=== PATIENT | male | born 1960 | race Caucasian/White ===

== ENCOUNTER 2017-02-06 12:57 | Emergency (ER) | payer SELFPAY ==
[2017-02-06 13:05] VITALS: BP 134/73; PULSE 83; RESP 16; TEMP 96.5; O2SAT 96
--- NOTE | 2017-02-06 13:47 | ED PDOC ---
HPI: Psych/Substance Abuse Time Seen by Provider: 02/06/17 13:10 Chief Complaint (Nursing): Alcohol Ingestion Chief Complaint (Provider): Alcohol Intoxication ED Caveat: Intoxicated History Per: Patient History/Exam Limitations: intoxication Onset/Duration Of Symptoms: Mins (just prior to arival) Current Symptoms Are (Timing): Still Present Additional Complaint(s): 54 y/o male, brought in by EMS, presents to the ED with a chief complaint of alcohol intoxication, with an onset just prior to arrival. Patient found in the park with bottle of vodka. As per EMS, patient was laying on park bench when found by Heriberto HERNANDEZ.Reviews of Systems and any pertinent history is limited secondary to the patient's inability to answer any of the provider's questions. Patient offers no complaints. Past Medical History Reviewed: Historical Data, Nursing Documentation, Vital Signs Vital Signs: Last Vital Signs Temp 96.5 F L 02/06/17 13:02 Pulse 83 02/06/17 13:02 Resp 16 02/06/17 13:02 BP 134/73 02/06/17 13:02 Pulse Ox 96 02/06/17 13:02 - Medical History PMH: No Chronic Diseases - Surgical History Surgical History: No Surg Hx - Family History Family History: States: Unknown Family Hx - Allergies Allergies/Adverse Reactions: Allergies Allergy/AdvReac Type Severity Reaction Status Date / Time No Known Allergies Allergy Verified 02/06/17 13:02 Review of Systems ROS Statement: Except As Marked, All Systems Reviewed And Found Negative Review Of Systems: ROS cannot be obtained secondary to pt's inabilty to answer questions. (patient is intoxicated with slurred speech) Neurological: Positive for: Change in Speech (Slurred Speech) Physical Exam - Reviewed Nursing Documentation Reviewed: Yes Vital Signs Reviewed: Yes - Physical Exam Appears: Positive for: Non-toxic, No Acute Distress Head Exam: Positive for: ATRAUMATIC, NORMOCEPHALIC Skin: Positive for: Normal Color, Warm Eye Exam: Positive for: Normal appearance, EOMI, PERRL ENT: Positive for: Normal ENT Inspection Neck: Positive for: Normal, Painless ROM, Supple Cardiovascular/Chest: Positive for: Regular Rate, Rhythm. Negative for: Murmur Respiratory: Positive for: Normal Breath Sounds. Negative for: Respiratory Distress Gastrointestinal/Abdominal: Positive for: Normal Exam, Soft. Negative for: Tenderness Back: Positive for: Normal Inspection Extremity: Positive for: Normal ROM. Negative for: Pedal Edema, Deformity Neurologic/Psych: Positive for: Other (Lethargic, but patient is responsive to verbal stimuli) - ECG O2 Sat by Pulse Oximetry: 96 (RA) Pulse Ox Interpretation: Normal - Progress ED Course And Treament: Patient alert with steady speech and gait. Eating sandwich in ED. Medical Decision Making Medical Decision Making: Time: --13:40 Impression: --ETOH Intoxication Plan: --Accucheck --Monitor patient until clinically sober and responsive Reassess -- Scribe Attestation: Documented by Rafita Harrison acting as a scribe for JOSE Mejia. Provider Attestation: All medical record entries made by the Scribe were at my direction and personally dictated by me. I have reviewed the chart and agree that the record accurately reflects my personal performance of the history, physical exam, medical decision making, and the department course for this patient. I have also personally directed, reviewed, and agree with the discharge instructions and disposition. Disposition - Clinical Impression Clinical Impression: Alcohol ingestion - Patient ED Disposition Is Patient to be Admitted: No - Disposition Referrals: [facility] [Outside] Disposition: Routine/Home Disposition Time: 17:43 Condition: FAIR Instructions: Alcohol Intoxication (ED) Forms: [employer] (Indonesian)
== END 2017-02-06 20:30 | disposition home or self-care (01) ==
LOC: H.ER 12:57 → EDBD 12:57 → H.ER 20:30
DX: F10.129 Alcohol abuse with intoxication, unspecified (principal)

== ENCOUNTER 2017-02-17 13:08 | Emergency (ER) | payer SELFPAY ==
[2017-02-17 13:22] VITALS: BP 156/96; PULSE 63; RESP 16; TEMP 97; O2SAT 98
--- NOTE | 2017-02-17 13:30 | ED PDOC ---
Lower Extremity Pain/Injury Time Seen by Provider: 02/17/17 13:23 Chief Complaint (Nursing): Lower Extremity Problem/Injury Chief Complaint (Provider): etoh History Per: Patient Additional Complaint(s): 56 year old non-domiciled male presents to ED with chronic pain to both feet ongoing for several years. Patient also states he had several drinks today and he states he drinks almost every day. Patient offers no other complaints. Past Medical History Reviewed: Historical Data, Nursing Documentation, Vital Signs Vital Signs: Last Vital Signs Temp 97.0 F L 02/17/17 13:17 Pulse 63 02/17/17 13:17 Resp 16 02/17/17 13:17 BP 156/96 H 02/17/17 13:17 Pulse Ox 98 02/17/17 13:17 - Medical History PMH: No Chronic Diseases - Family History Family History: States: No Known Family Hx - Living Arrangements Living Arrangements: Other (non-domiciled) - Social History Alcohol: > 2 Drinks/Day - Allergies Allergies/Adverse Reactions: Allergies Allergy/AdvReac Type Severity Reaction Status Date / Time No Known Allergies Allergy Verified 02/06/17 13:02 Review of Systems ROS Statement: Except As Marked, All Systems Reviewed And Found Negative Musculoskeletal: Positive for: Foot Pain Psych: Positive for: Other (etoh) Physical Exam - Reviewed Nursing Documentation Reviewed: Yes Vital Signs Reviewed: Yes - Physical Exam Skin: Negative for: Rash Eye Exam: Positive for: Normal appearance Extremity: Positive for: Normal ROM Neurologic/Psych: Positive for: Alert, Oriented, Gait (steady) - ECG O2 Sat by Pulse Oximetry: 98 Pulse Ox Interpretation: Normal Medical Decision Making Medical Decision Makin:30 pm: 56 year old male with chronic bilateraly foot pain and history of etoh abuse. Plan: Glucose POC BAL 2:40 pm: patient left ED before treatment complete. Disposition - Clinical Impression Clinical Impression: Alcohol ingestion, Foot pain - Patient ED Disposition Is Patient to be Admitted: No - Disposition Disposition: Eloped Disposition Time: 02:45 Condition: UNKNOWN Forms: [employer] (Belizean)
== END 2017-02-17 14:50 | disposition left against medical advice (07) ==
LOC: H.ER 13:08
DX: F10.129 Alcohol abuse with intoxication, unspecified (principal); G89.4 Chronic pain syndrome